=== PATIENT | male | born 1945 ===

== ENCOUNTER 2020-11-16 11:08 | Outpatient (CLI) | payer OTHER | END 2020-11-16 11:10 | disposition home or self-care (01) | LOC: NUCLEAR 11:08 | PROVIDERS: ATTEND Internal Medicine Hematology & Oncology | DX: C34.92 Malignant neoplasm of unspecified part of left bronchus or lung (principal); C79.51 Secondary malignant neoplasm of bone; R91.1 Solitary pulmonary nodule | CPT/HCPCS: 78816; A9552 ==